=== PATIENT | female | born 1995 | race Caucasian/White ===

== ENCOUNTER 2020-06-24 12:55 | Emergency (ER) | payer SELFPAY ==
[2020-06-24] VITALS (7 sets, daily range): BP systolic 98–113; BP diastolic 55–63; PULSE 61–99; RESP 14–16; TEMP 36.5; O2SAT 93–99; BMI 23.8
[2020-06-24 14:41] LABS: Add Manual Diff / Slide Review NO; Basophils Absolute Auto 0 /uL (0-100); Basophils Percent Auto 0.6 % (0-2); Eosinophils Absolute Auto 0 /uL (0-450); Eosinophils Percent Auto 0.4 % (2-4); Hematocrit 46.7 % (36-46); Hemoglobin 15.8 g/dL (12.0-16.0); Lymphocytes Absolute Auto 1800 /uL (1100-4500); Lymphocytes Percent Auto 24.1 % (25-40); Mean Corpuscular HGB Conc 33.8 % (30-36); Mean Corpuscular Hemoglobin 31.3 PG (26-34); Mean Corpuscular Volume 92.5 fL (80-100); Monocytes Absolute Auto 500 /uL (0-900); Monocytes Percent Auto 6.8 % (3-14); Neutrophils Absolute Auto 5200 /uL (1500-7000); Neutrophils Percent Auto 68.1 % (50-75); Platelet Count 262 X10^3/uL (150-400); Red Blood Cell Count 5.05 X10^6/uL (4.0-5.2); White Blood Cell Count 7.7 X10^3/uL (4.5-11.0)
[2020-06-24 14:47] LABS: INR 1.1 (0.9-1.3); Prothrombin Time 12.8 SECONDS (10.1-12.7)
[2020-06-24 14:50] LABS: PTT Partial Thromboplastin Tim 29 SECONDS (26.4-36.2)
[2020-06-24 14:54] LABS: Alanine Aminotransferase 15 IU/L (<35); Albumin 4.8 g/dL (3.5-5.0); Albumin Globulin Ratio 1.5 (1.0-2.8); Alkaline Phosphatase 72 U/L (38-126); Aspartate Aminotransferase 19 IU/L (14-36); BUN Creatinine Ratio 17.1 (6-22); Bilirubin Total 0.7 mg/dL (0.2-1.3); Blood Urea Nitrogen 14 mg/dL (7-17); Calcium 9.7 mg/dL (8.4-10.2); Carbon Dioxide 29 mmol/L (22-32); Chloride 103 mmol/L (98-107); Estimated Glomerular Filt Rate > 60.0 mL/min (>60); Globulin 3.1 g/dL (1.7-4.1); Glucose 89 mg/dL (70-100); HEMOLYSIS < 15 (0-50); Lipase 226 U/L (23-300); Potassium 3.7 mmol/L (3.4-5.1); Sodium 140 mmol/L (137-145); Total Protein 7.9 g/dL (6.3-8.2)
--- NOTE | 2020-06-24 15:20 | DI.CT.S_ITS ---
PROCEDURE: CT ABDOMEN PELVIS W CON INDICATIONS: RLQ pain, nausea/vomiting, appy? ovarian cyst? TECHNIQUE: After the administration of intravenous contrast, 5 mm thick sections acquired from the diaphragm to the symphysis. 5 mm coronal and sagittal reformats were acquired. For radiation dose reduction, the following was used: automated exposure control, adjustment of mA and/or kV according to patient size. COMPARISON: None. FINDINGS: Image quality: Excellent. ABDOMEN: Lung bases: Lung bases are clear. Heart size is normal. Solid organs: Liver is normal in size and enhancement. Gallbladder appears normal. Biliary system is non dilated. Pancreas enhances normally. Spleen is normal in size and enhancement. No adrenal nodules. Kidneys demonstrate normal size and enhancement, without hydronephrosis. Peritoneum and bowel: A 2.7 x 1.8 cm collection of fluid and gas posterior to the gastric fundus is most likely a small gastric diverticulum. No associated inflammatory changes are seen. No signs of small bowel obstruction are seen. The appendix appears normal. No free fluid or air. Nodes and vessels: No retroperitoneal or mesenteric adenopathy by size criteria. Aorta and inferior vena cava are normal in size. Miscellaneous: A tiny fat containing periumbilical hernia is present. PELVIS: Genitourinary: Bladder wall thickness is normal. Miscellaneous: No inguinal hernias or adenopathy. Bones: No suspicious bony lesions. No vertebral body compression fractures. IMPRESSION: 1. No acute abnormality is seen in the abdomen or pelvis. Normal appendix. 2. Small posterior fundal gastric diverticulum without associated inflammatory changes. Dictated by: Renard Hernandez M.D. on 06/24/2020 at 15:37 Approved by: Renard Hernandez M.D. on 06/24/2020 at 15:48
[2020-06-24] MEDS: SODIUM CHLORIDE 0.9% 1,000 ML 1000 ML IV (16:03)
[2020-06-24] MEDS: KETOROLAC 60 MG/2 ML VIAL 15 MG IV (16:03)
--- NOTE | 2020-06-24 16:09 | DI.US.S_ITS ---
PROCEDURE: US PELVIC COMPLETE INDICATIONS: RLQ PAIN. HISTORY OF OVARIAN CYSTS. TECHNIQUE: Real-time scanning was performed of the pelvic organs, with image documentation. Additional endovaginal scanning was necessary due to incomplete visualization of the adnexal and endometrial structures by transabdominal scanning. COMPARISON: [facility], CT, CT ABDOMEN PELVIS W CON, 06/24/2020, 15:26. FINDINGS: Transabdominal scanning: Limited scanning through the kidneys demonstrates minimal prominence of the proximal ureter on the right. Pelvocaliectasis is present. No pathologic free abdominal or pelvic fluid. Endovaginal scanning: Uterus: Uterus is normal in size at 9.1 x 3.9 x 3.3 cm. The endometrium measures 4.1 mm in combined thickness. Ovaries: Right ovary measures 5.5 x 2.6 x 2.4 cm, volume 17.9 cc. Left ovary measures 4.4 x 2.4 x 2.0 cm, volume 11.0 cc. Multiple follicles are noted bilaterally. Articular venous flow is present. IMPRESSION: 1. Multiple bilateral follicles. 2. Minimal proximal right ureteral dilation and pelvicaliectasis. Dictated by: Dodie Dos Santos M.D. on 06/24/2020 at 18:04 Approved by: Dodie Dos Santos M.D. on 06/24/2020 at 18:07
--- NOTE | 2020-06-24 17:42 | PC.NURSE ---
I answered patients call light, IV fluids were empty. I told her I would get a nurse to help her with it. Patient was upset that I wouldn't flush her IV, to which I explained to her that I am not a nurse, but would be able to locate one for her.
--- NOTE | 2020-06-24 23:57 | ED.ABDPAIN ---
HPI - Abdominal Pain <JESSICA Kenney - Last Filed: 06/25/20 00:22> General Chief Complaint: Abdominal Pain Stated Complaint: LOWER RIGHT PAIN Time Seen by Provider: 06/24/20 14:29 Source: patient Mode of arrival: Ambulatory Limitations: no limitations History of Present Illness HPI narrative: This is a 25 year female, former smoker, who possible endometriosis and ovarian cyst presents to ED with right lower quadrant pain for last 2-3 days. Patient reports pain is more frequent and severe today and describes as sharp and squeezing like. Patient denies fever but had 1 episode of emesis 2 days ago with severe pain. Patient denies urinary symptoms such as urgency, dysuria, frequency, hematuria or history of kidney stones. Patient denies fever but reports subjective alternating feeling hot and cold. Patient denies previous abdominal surgeries. LMP was 04/25/20 and stating her menses been irregular. Reports is sexually active. She denies unusual vaginal discharge but slightly increased in amount. Patient reports her pain is similar to previous ovarian cyst pain but this usually does not last this long. Patient reports pain increases with movement and can not get comfortable and has to adjust position every few minutes. Patient is new in town and has not not arrange primary care physician. Related Data Previous Rx's Medication Instructions Recorded ondansetron 4 mg PO TID PRN #5 tab 06/24/20 Review of Systems <JESSICA Kenney - Last Filed: 06/25/20 00:22> Review of Systems Narrative: General: Denies fever, (+) subjective feeling hot, (+) chills, fatigue, malaise, sweats. HEENT: Denies sinus pain, ear pain, sore throat, difficulty swallowing, dizziness. Respiratory: Denies dyspnea, cough, wheezing, hemoptysis, sputum. Cardiovascular: Denies chest pain, palpitations, orthopnea, edema. Gastrointestinal: CHP : Denies dysuria, frequency, incontinence, hematuria, urinary retention. Musculoskeletal: Denies weakness, joint pain or bony pain. Skin: Denies rash, skin lesions, or other. Neurologic: Denies weakness, headache, numbness, change in speech, confusion, seizures, incoordination. Psychiatric: No concerning psychosocial issues. 12-point review of systems is negative except for those stated above. Patient History <JESSICA Kenney - Last Filed: 06/25/20 00:22> Medical History Endometriosis (Acute) Ovarian cyst (Acute) Social History Smoking Status: Former smoker substance use type: does not use Exam <JESSICA Kenney - Last Filed: 06/25/20 00:22> Narrative Exam Narrative: GEN: Alert, oriented x 3, well appearing and nourished, and in no acute distress. Head: Normal cephalic, atraumatic. No scalp or temporal tenderness, palpable mass or rash. EYES: Pupils are equal, round, and reactive to light and accommodation. Extraocular muscles are intact bilaterally. There is no subconjunctival hemorrhage, exudate and sclera non-icteric. ENT: Hearing grossly intact. Nose without bleeding, purulent discharge or deviation. Mucous membrane dry, no mucosal lesion. Throat without erythema, tonsillar hypertrophy or exudate. Uvula in midline, airway patent. Neck: Trachea in midline. No JVD, non-tender without lymphadenopathy. No masses or thyroid megaly. Supple, non-tender and no meningeal signs. CARDIAC: Normal regular rate and rhythm without murmurs, gallops, or rubs. No chest wall tenderness. No peripheral edema, cyanosis or pallor. Capillary refill is less than 2 seconds. RESPIRATORY: Lungs are clear to auscultate bilaterally. No cough, wheezes, rales, or rhonchi. No stridor, respiratory distress, increase work of breathing, or accessary muscle used. ABD: Abdomen soft and non-distended. Right lower quadrant tenderness to palpate. Positive Rovsing sign. Positive psoas sign. No guarding or rebound tenderness to palpate. Bowel sounds are normal in all 4 quadrants. There is no palpable masses or organomegaly. EXT: Full painless ROM of all extremities with no loss of sensation, strength, effusion or edema. SKIN: Warm, dry, normal color for patient. No erythema, lesions or rash over visible areas. BACK: Nontender without deformity or crepitance. Right flank pain tenderness to percuss. NEUROLOGICAL: Alert and oriented to place, time and person. Sensation and motor function intact bilaterally. No facial droops, dysphasia. PSYCHIATRIC: Good judgement and reason, without hallucinations, abnormal affect or abnormal behaviors during the examination. Patient is not suicidal. Initial Vital Signs Initial Vital Signs: Vital Signs Temperature 97.7 F 06/24/20 13:19 Pulse Rate 99 H 06/24/20 13:19 Respiratory Rate 16 06/24/20 13:19 Blood Pressure 112/63 06/24/20 13:19 Pulse Oximetry 97 06/24/20 13:19 <Hilario Garcia MD - Last Filed: 06/27/20 13:01> Initial Vital Signs Initial Vital Signs: Vital Signs Temperature 97.7 F 06/24/20 13:19 Pulse Rate 99 H 06/24/20 13:19 Respiratory Rate 16 06/24/20 13:19 Blood Pressure 112/63 06/24/20 13:19 Pulse Oximetry 97 06/24/20 13:19 Scores <JESSICA Kenney - Last Filed: 06/25/20 00:22> GCS [place] coma scale eye opening: Spontaneous Diane coma scale verbal response: Orientated [place] coma scale motor response: Obey commands [place] coma scale total score: 15 qSOFA Altered Mental Status (GCS <15): No Respiratory rate greater than/equal to 22: No Systolic blood pressure less than or equal to 100: No qSOFA Total: 0 0-1 Not High Risk 1-3 High risk Course <JESSICA Kenney - Last Filed: 06/25/20 00:22> Orders Ordered: Discontinued Medications Sodium Chloride (Normal Saline 0.9%) 1,000 mls @ 1,000 mls/hr IV BOLUS ONE Stop: 06/24/20 16:19 Last Infusion: 06/24/20 17:52 Dose: 0 mls/hr Documented by: Admin: 06/24/20 16:03 Dose: 1,000 mls/hr Documented by: MATT Ketorolac Tromethamine (Toradol) 15 mg IV NOW ONE Stop: 06/24/20 15:21 Last Admin: 06/24/20 16:03 Dose: 15 mg Documented by: MATT Vital Signs Vital signs: Vital Signs - 8 hr 06/24/20 16:05 06/24/20 16:06 06/24/20 16:30 Pulse Rate 61 64 66 Respiratory Rate Blood Pressure 113/55 L 98/57 L Pulse Oximetry 93 98 99 06/24/20 17:30 06/24/20 18:00 06/24/20 18:31 Pulse Rate 65 63 80 Respiratory Rate 14 Blood Pressure 99/59 L Pulse Oximetry 99 99 99 <Hilario Garcia MD - Last Filed: 06/27/20 13:01> Orders Ordered: Discontinued Medications Sodium Chloride (Normal Saline 0.9%) 1,000 mls @ 1,000 mls/hr IV BOLUS ONE Stop: 06/24/20 16:19 Last Infusion: 06/24/20 17:52 Dose: 0 mls/hr Documented by: Admin: 06/24/20 16:03 Dose: 1,000 mls/hr Documented by: MMINOR Ketorolac Tromethamine (Toradol) 15 mg IV NOW ONE Stop: 06/24/20 15:21 Last Admin: 06/24/20 16:03 Dose: 15 mg Documented by: MMMARY Vital Signs Vital signs: Vital Signs - 8 hr 06/24/20 16:05 06/24/20 16:06 06/24/20 16:30 Pulse Rate 61 64 66 Respiratory Rate Blood Pressure 113/55 L 98/57 L Pulse Oximetry 93 98 99 06/24/20 17:30 06/24/20 18:00 06/24/20 18:31 Pulse Rate 65 63 80 Respiratory Rate 14 Blood Pressure 99/59 L Pulse Oximetry 99 99 99 MDM - Abdominal Pain <Beau JESSICA Carrillo - Last Filed: 06/25/20 00:22> Differential Diagnosis Differential diagnosis: Likely acute appendicitis, calculus of kidney, endometriosis and other (Ovarian cyst, ovarian torsion, inguinal hernia, mesenteric adenopathy, pyelonephritis) Medical Records Attestation: I reviewed the patient's medical records. Lab Data Attestation: I reviewed the patient's lab results. Result diagrams: 06/24/20 14:30 06/24/20 14:30 Labs: Lab Results 06/24/20 06/24/20 06/24/20 Range/Units 14:30 14:30 14:30 WBC 7.7 (4.5-11.0) X10^3/uL RBC 5.05 (4.0-5.2) X10^6/uL Hgb 15.8 (12.0-16.0) g/dL Hct 46.7 H (36-46) % MCV 92.5 (80-100) fL MCH 31.3 (26-34) PG MCHC 33.8 (30-36) % RDW 13.0 (11.6-14.8) % Plt Count 262 (150-400) X10^3/uL Neut % (Auto) 68.1 (50-75) % Lymph % (Auto) 24.1 L (25-40) % [place] % (Auto) 6.8 (3-14) % Eos % (Auto) 0.4 L (2-4) % Baso % (Auto) 0.6 (0-2) % Neut # (Auto) 5200 (4059-3846) /uL Lymph # (Auto) 1800 (5550-0470) /uL [place] # (Auto) 500 (0-900) /uL Eos # (Auto) 0 (0-450) /uL Baso # (Auto) 0 (0-100) /uL PT 12.8 H (10.1-12.7) SECONDS INR 1.1 (0.9-1.3) APTT 29 (26.4-36.2) SECONDS Sodium 140 (137-145) mmol/L Potassium 3.7 (3.4-5.1) mmol/L Chloride 103 (98-107) mmol/L Carbon Dioxide 29 (22-32) mmol/L BUN 14 (7-17) mg/dL Creatinine 0.82 (0.52-1.04) mg/dL Estimated GFR > 60.0 (>60) mL/min BUN/Creatinine Ratio 17.1 (6-22) Glucose 89 (70-100) mg/dL Calcium 9.7 (8.4-10.2) mg/dL Total Bilirubin 0.7 (0.2-1.3) mg/dL AST 19 (14-36) IU/L ALT 15 (<35) IU/L Alkaline Phosphatase 72 (38-126) U/L Total Protein 7.9 (6.3-8.2) g/dL Albumin 4.8 (3.5-5.0) g/dL Globulin 3.1 (1.7-4.1) g/dL Albumin/Globulin Ratio 1.5 (1.0-2.8) Lipase 226 (23-300) U/L Point of care testing: Point of Care Testing Test Results Negative Urine Dip Bedside Urine Glucose Negative Bedside Urine Bilirubin - Negative Bedside Urine Ketone - Negative Urine Specific [place] 1.020 Bedside Urine Occult Blood - Negative Bedside Urine pH 6.5 Bedside Urine Protein - Negative Bedside Urine Urobilinogen - Negative Bedside Urine Nitrite - Negative Bedside Urine Leukocytes - Negative Esterase Imaging Data CT scan - abdomen/pelvis: Radiologist's Impression: [address] [address] [address] Scan Report Signed Patient: Radha Young [facility]#: [id number] : 1995Acct:[id number] Age/Sex: 25 / FDate of Service: 06/24/20 Loc: ED Accession Number: [id number] Procedure: CT abdomen pelvis w con Ordering Provider: Beau Carrillo PROCEDURE: CT ABDOMEN PELVIS W CON INDICATIONS: RLQ pain, nausea/vomiting, appy? ovarian cyst? TECHNIQUE: After the administration of intravenous contrast, 5 mm thick sections acquired from the diaphragm to the symphysis. 5 mm coronal and sagittal reformats were acquired. For radiation dose reduction, the following was used: automated exposure control, adjustment of mA and/or kV according to patient size. COMPARISON: None. FINDINGS: Image quality: Excellent. ABDOMEN: Lung bases: Lung bases are clear. Heart size is normal. Solid organs: Liver is normal in size and enhancement. Gallbladder appears normal. Biliary system is non dilated. Pancreas enhances normally. Spleen is normal in size and enhancement. No adrenal nodules. Kidneys demonstrate normal size and enhancement, without hydronephrosis. Peritoneum and bowel: A 2.7 x 1.8 cm collection of fluid and gas posterior to the gastric fundus is most likely a small gastric diverticulum. No associated inflammatory changes are seen. No signs of small bowel obstruction are seen. The appendix appears normal. No free fluid or air. Nodes and vessels: No retroperitoneal or mesenteric adenopathy by size criteria. Aorta and inferior vena cava are normal in size. Miscellaneous: A tiny fat containing periumbilical hernia is present. PELVIS: Genitourinary: Bladder wall thickness is normal. Miscellaneous: No inguinal hernias or adenopathy. Bones: No suspicious bony lesions. No vertebral body compression fractures. IMPRESSION: 1. No acute abnormality is seen in the abdomen or pelvis. Normal appendix. 2. Small posterior fundal gastric diverticulum without associated inflammatory changes. Dictated by: Renard Hernandez M.D. on 06/24/2020 at 15:37 Approved by: Renard Hernandez M.D. on 06/24/2020 at 15:48 US - BIOLOGICAL TECHNICIAN: Radiologist's Impression: [address] [address] Ultrasound Report Signed Patient: Radha Young [facility]#: [id number] : 1995Acct:[id number] Age/Sex: 25 / FDate of Service: 06/24/20 Loc: ED Accession Number: [id number] Procedure: US pelvic complete Ordering Provider: Beau Carrillo PROCEDURE: US PELVIC COMPLETE INDICATIONS: RLQ PAIN. HISTORY OF OVARIAN CYSTS. TECHNIQUE: Real-time scanning was performed of the pelvic organs, with image documentation. Additional endovaginal scanning was necessary due to incomplete visualization of the adnexal and endometrial structures by transabdominal scanning. COMPARISON: [facility], CT, CT ABDOMEN PELVIS W CON, 06/24/2020, 15:26. FINDINGS: Transabdominal scanning: Limited scanning through the kidneys demonstrates minimal prominence of the proximal ureter on the right. Pelvocaliectasis is present. No pathologic free abdominal or pelvic fluid. Endovaginal scanning: Uterus: Uterus is normal in size at 9.1 x 3.9 x 3.3 cm. The endometrium measures 4.1 mm in combined thickness. Ovaries: Right ovary measures 5.5 x 2.6 x 2.4 cm, volume 17.9 cc. Left ovary measures 4.4 x 2.4 x 2.0 cm, volume 11.0 cc. Multiple follicles are noted bilaterally. Articular venous flow is present. IMPRESSION: 1. Multiple bilateral follicles. 2. Minimal proximal right ureteral dilation and pelvicaliectasis. Dictated by: Dodie Dos Santos M.D. on 06/24/2020 at 18:04 Approved by: Dodie Dos Santos M.D. on 06/24/2020 at 18:07 [facility] Narrative Medical decision making narrative: This is a 25-year-old female who presents to ED with lower quadrant abdominal pain for last 2-3 days with 1 episode of vomiting 2 days ago. Patient reports subjective chills and feeling hot. Physical exam appreciated while lower quadrant pain per palpation with positive Rovsing, psoas sign, and right flank pain to percuss. Unremarkable CBC test without leukocytosis. Stable H&H of 15.8/46.7. Unremarkable chemistry test, liver function tests, kidney function test. Normal lipase. Concerned for appendicitis and abdominal/pelvis CT was ordered and obtained. No acute findings seen in CT with normal appendix. No mesenteric adenopathy appreciated. There was incidental finding of small posterior fundal gastric diverticulum without associated inflammatory changes. US test for pelvic obtained given the patient has history of ovarian cyst, irregular menses. It showed multiple bilateral follicles in ovaries without torsion. Minimal proximal right ureteral dilation and pelvic caliectasis. Urine test does not indicate infection urine was negative. With IV fluid and Toradol which helped the symptoms. Patient's abdominal pain may likely due to multiple ovarian follicles and patient may have PCOS syndrome given patient also has irregular menstruation. Patient advised to take [id number] Tylenol and or Motrin as needed for discomfort. [facility] Resource phone number provided to arrange primary care physician and to follow-up on her abdominal pain. Return precautions were discussed with patient and patient verbalized understanding in agreement with the treatment plan. <Hilario Garcia MD - Last Filed: 06/27/20 13:01> Lab Data Labs: Lab Results 06/24/20 06/24/20 06/24/20 Range/Units 14:30 14:30 14:30 WBC 7.7 (4.5-11.0) X10^3/uL RBC 5.05 (4.0-5.2) X10^6/uL Hgb 15.8 (12.0-16.0) g/dL Hct 46.7 H (36-46) % MCV 92.5 (80-100) fL MCH 31.3 (26-34) PG MCHC 33.8 (30-36) % RDW 13.0 (11.6-14.8) % Plt Count 262 (150-400) X10^3/uL Neut % (Auto) 68.1 (50-75) % Lymph % (Auto) 24.1 L (25-40) % [place] % (Auto) 6.8 (3-14) % Eos % (Auto) 0.4 L (2-4) % Baso % (Auto) 0.6 (0-2) % Neut # (Auto) 5200 (7203-8306) /uL Lymph # (Auto) 1800 (4414-6467) /uL [place] # (Auto) 500 (0-900) /uL Eos # (Auto) 0 (0-450) /uL Baso # (Auto) 0 (0-100) /uL PT 12.8 H (10.1-12.7) SECONDS INR 1.1 (0.9-1.3) APTT 29 (26.4-36.2) SECONDS Sodium 140 (137-145) mmol/L Potassium 3.7 (3.4-5.1) mmol/L Chloride 103 (98-107) mmol/L Carbon Dioxide 29 (22-32) mmol/L BUN 14 (7-17) mg/dL Creatinine 0.82 (0.52-1.04) mg/dL Estimated GFR > 60.0 (>60) mL/min BUN/Creatinine Ratio 17.1 (6-22) Glucose 89 (70-100) mg/dL Calcium 9.7 (8.4-10.2) mg/dL Total Bilirubin 0.7 (0.2-1.3) mg/dL AST 19 (14-36) IU/L ALT 15 (<35) IU/L Alkaline Phosphatase 72 (38-126) U/L Total Protein 7.9 (6.3-8.2) g/dL Albumin 4.8 (3.5-5.0) g/dL Globulin 3.1 (1.7-4.1) g/dL Albumin/Globulin Ratio 1.5 (1.0-2.8) Lipase 226 (23-300) U/L Point of care testing: Point of Care Testing Test Results Negative Urine Dip Bedside Urine Glucose Negative Bedside Urine Bilirubin - Negative Bedside Urine Ketone - Negative Urine Specific [place] 1.020 Bedside Urine Occult Blood - Negative Bedside Urine pH 6.5 Bedside Urine Protein - Negative Bedside Urine Urobilinogen - Negative Bedside Urine Nitrite - Negative Bedside Urine Leukocytes - Negative Esterase Discharge Plan Departure Patient Disposition: Home Clinical Impression: Abdominal pain Qualifiers: Abdominal location: right lower quadrant Qualified Code(s): R10.31 - Right lower quadrant pain Discharge Date/Time: 06/24/20 18:33 Instructions: DI for Abdominal Pain-Adult Activity Restrictions/Additional Instructions: You have been diagnosed with [right lower quadrant pain. Lab tests, imaging tests for CT and ultrasounds are assuring. Urine test does not indicate infection and test was negative. Ultrasound test shows many follicles in bilateral ovaries]. What to do: *Take your medications as directed. Tylenol and or Motrin as needed. Tylenol 650-1000 mg as needed for pain up to 3 to 4 times a day. Ibuprofen 400-600 mg up to 3 to 4 times a day as needed for pain with food to decrease GI irritation. Zofran as needed for nausea. Zofran has been transmitted to [facility]. *Follow up with your primary care provider in 2-3 days, call for an appointment. Let them know you were seen in the ED and that we asked you to be seen in follow up. *Return to ED if you have any new, worsening, or concerning symptoms, such as [worsening pain, difficulty breathing, unable to tolerate fluids, urinary symptoms, unusual vaginal discharge or any acute concerns]. Prescriptions: New ondansetron 4 mg tablet,disintegrating 4 mg PO TID PRN (Reason: nausea and vomiting) Qty: 5 RF: 0 Referrals: [facility] [Outside] Stand Alone Forms: Work Release Note <Hilario Garcia MD - Last Filed: 06/27/20 13:01> [facility]: I was immediately available in the department for consultation. This documentation has been reviewed and I agree with assessment and plan. Supervised by Hilario Garcia MD
== END 2020-06-24 18:33 | disposition home or self-care (01) ==
PROVIDERS: Emergency Medicine; Emergency Provider Nurse Practitioner Family
DX: R10.31 Right lower quadrant pain (principal); R11.2 Nausea with vomiting, unspecified; Z87.42 Personal history of other diseases of the female genital tract
CPT/HCPCS: 36415; 74177; 76856; 80053; 81003; 81025; 83690; 85025; 85610; 85730; 96361; 96374; 99284; J1885

== ENCOUNTER → 2020-09-01 14:57 | Outpatient (CLI) | payer OTHER, SELFPAY ==
[2020-09-01 15:53] LABS: COVID19 -Nasal RAPID POSITIVE (Negative)
== END ==
PROVIDERS: Visit Provider Nurse Practitioner
DX: U07.1 COVID-19 (principal)
CPT/HCPCS: 87635